=== PATIENT | female | born 1995 | race Hispanic/Latino ===

== ENCOUNTER 2018-06-30 18:41 | Emergency (ER) | payer MEDICAID, OTHER ==
[2018-06-30 20:20] LABS: APPEARANCE,URINE Clear (CLEAR); BILIRUBIN,URINE Negative (NEGATIVE); COLOR,URINE Yellow (YELLOW); GLUCOSE, URINE (UA) Negative (NEGATIVE); KETONES,URINE Trace mg/dL (NEGATIVE); LEUKOCYTE ESTERASE ,URINE Negative (NEGATIVE); NITRATE,URINE Negative (NEGATIVE); OCCULT BLOOD,URINE Negative (NEGATIVE); PROTEIN,URINE Negative (NEGATIVE); UROBILINOGEN,URINE 0.2 mg/dL (0.2-1.0)
[2018-06-30 20:23] LABS: HCG,QUAL RESULT NEGATIVE (NEGATIVE)
== END 2018-06-30 20:39 | disposition home or self-care (01) ==
LOC: EDH 18:41
DX: R10.2 Pelvic and perineal pain (principal)
CPT/HCPCS: 81003; 81025; 87486; 87797

== ENCOUNTER 2018-12-16 11:20 | Emergency (ER) | payer OTHER | END 2018-12-16 16:32 | disposition home or self-care (01) | LOC: EDH 11:20 | DX: L02.31 Cutaneous abscess of buttock (principal); L03.317 Cellulitis of buttock | CPT/HCPCS: 10060; 81025 ==